=== PATIENT | male | born 1980 | race Caucasian/White ===

== ENCOUNTER 2024-05-10 16:17 | Emergency (ER) | payer OTHER ==
[2024-05-10] MEDS ORDERED: Morphine 4 MG/ML VIAL ONE (17:11)
[2024-05-10] MEDS ORDERED: Ketorolac Tromethamine 30 MG (1 mL) VIAL ONE (17:11)
[2024-05-10] MEDS ORDERED: Morphine 2 MG/ML VIAL ONE (17:12)
== END 2024-05-10 18:57 | disposition home or self-care (01) ==
LOC: CSHERS 16:17
DX: K40.90 Unilateral inguinal hernia, without obstruction or gangrene, not specified as recurrent (principal); I10 Essential (primary) hypertension; F17.290 Nicotine dependence, other tobacco product, uncomplicated; Z55.6 Problems related to health literacy
CPT/HCPCS: 96374; 96375; J1885; J2272